=== PATIENT | female | born 1990 | race Caucasian/White ===

== ENCOUNTER 2016-08-30 17:05 | Emergency (ER) | payer OTHER ==
[2016-08-30 17:33] VITALS: BP 132/77; PULSE 78; RESP 18; TEMP 98; O2SAT 97
--- NOTE | 2016-08-30 17:53 | UCPHY ---
H & P Time Seen by Provider: 08/30/16 17:30 Patient Type: Established HPI/ROS: This patient presents with a chief complaint of left wrist pain which began approximately 2 weeks ago. She denies any trauma whatsoever. She is right- handed and does not do any repetitive activities with her left upper extremity. She denies any motor or sensory dysfunction. The pain is worse with flexion and ulnar deviation and also making a fist. She denies any fever or constitutional symptoms. Smoking Status: Never smoked Physical Exam: This is a well-developed well-nourished female who is in no acute distress. She is alert lucid and has normal mental status. Examination of the wrist reveals no swelling. Skin is normal in both color and temperature. Tenderness is maximal over the proximal base of the 1st metacarpal but also in the anatomical snuffbox. Passive movement of the wrist increases her pain as does active movement. Constitutional: Initial Vital Signs Temperature (C) 36.6 C 08/30/16 17:32 Heart Rate 78 08/30/16 17:32 Respiratory Rate 18 08/30/16 17:32 Blood Pressure 132/77 H 08/30/16 17:32 O2 Sat (%) 97 08/30/16 17:32 O2 Delivery Mode Room Air Allergies/Adverse Reactions: strawberry Allergy (Verified 07/02/15 11:44) Other-Enter Comments Home Medications: Medication Instructions Recorded oxyCODONE/APAP 5/325 [Percocet 1 tab PO Q4H #20 tab 06/25/15 5/325] Medical Decision Making - Diagnostics Imaging: X-rays of the wrist are normal Differential Diagnosis: My have no diagnosis for this patient's pain but find no evidence of an infectious process, arthritis, or a neurovascular source. Departure - Departure Disposition: Home, Routine, Self-Care Clinical Impression: Wrist pain, acute Qualifiers: Laterality: left Qualifier Code: (M25.532) Pain in left wrist Condition: Good Instructions: Arthralgia (ED) Additional Instructions: If your symptoms have not resolved in another week I would suggest a follow-up with an orthopedist. In the meantime apply heat and use ibuprofen as detailed below. Adult Pain & Fever Control: We recommend Acetaminophen (Tylenol) and Ibuprofen (Motrin, Advil) for pain and fever control. When fever is high or pain severe, both drugs can be used at the same time, but at different intervals. Please note the time differences. Your dose is: Acetaminophen [650]mg every 4 to 6 hours ibuprofen [600]mg every [6] hours with food OR naproxen Sodium (Aleve) [440]mg every 12 hours. Note: do not take Acetaminophen with Hydrocodone (Vicodin, Lortab) or Oxycodone (Percocet). These medications also contain Acetaminophen. No more than 3000 mg of Acetaminophen should be taken in 24 hours (for an adult) . The maximal dose of ibuprofen that it is safe in a 24-hour period is 2400 mg. You may take 400 mg every 4 hours, 600 mg every 6 hours or 800 mg every 8 hours safely. - PQRS PQRS Measurement: Not applicable
--- NOTE | 2016-08-30 19:10 | DX ---
Left Wrist Series, 4 views Indication: Pain. No trauma.. Comparison: None Findings: The bones are anatomically aligned. No acute fracture. Minimal narrowing of the radiocarpa l joint space near the lunate. The distal ulna and radius are minimally deformed suggestive of remote trauma. Impression: 1. 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 2. No acute fracture or bone lesion.
== END 2016-08-30 18:20 | disposition home or self-care (01) ==
LOC: CED 17:05
DX: M25.532 Pain in left wrist (principal)
CPT/HCPCS: 73110-PO; 99214-PO; G0463-PO